=== PATIENT | female | born 1995 | race Two or more races ===

== ENCOUNTER 2016-12-19 15:12 | Emergency (ER) | payer MEDICAID ==
--- NOTE | 2016-12-19 17:34 | UC ---
Throat Pain/Nasal Stewart HPI - HPI Summary HPI Summary: sore throat getting worse for a couple of days, no fever - History of Current Complaint Chief Complaint: UCGeneralIllness Stated Complaint: SORE THROAT Time Seen by Provider: 12/19/16 17:07 Hx Obtained From: Patient Hx Last Menstrual Period: 12/11/16 ?: No Onset/Duration: Sudden Onset, Lasting Days Severity: Moderate Pain Intensity: 6 Pain Scale Used: 0-10 Numeric Cough: None Associated Signs & Symptoms: Positive: Negative - Allergies/Home Medications Allergies/Adverse Reactions: Allergies Allergy/AdvReac Type Severity Reaction Status Date / Time No Known Allergies Allergy Verified 12/19/16 15:47 PMH/Surg Hx/FS Hx/Imm Hx Previously Healthy: Yes Other History Of: Negative For: HIV, Hepatitis B, Hepatitis C, Anticoagulant Therapy - Surgical History Surgical History: Yes Surgery Procedure, Year, and Place: x 2 - Family History Known Family History: Positive: None Negative: Cardiac Disease - Social History Occupation: Unemployed Lives: With Family Alcohol Use: Rare Substance Use Type: None Smoking Status (MU): Never Smoked Tobacco Review of Systems Constitutional: Negative Skin: Negative Eyes: Negative ENT: Sore Throat Respiratory: Negative Cardiovascular: Negative Gastrointestinal: Negative Genitourinary: Negative Motor: Negative Neurovascular: Negative Musculoskeletal: Negative Neurological: Negative Psychological: Negative Is Patient Immunocompromised?: No All Other Systems Reviewed And Are Negative: Yes Physical Exam Triage Information Reviewed: Yes Appearance: Well-Appearing, No Pain Distress, Well-Nourished Vital Signs: Initial Vital Signs Temp 98 F 12/19/16 15:47 Pulse 75 12/19/16 15:47 Resp 16 12/19/16 15:47 BP 102/67 12/19/16 15:47 Pulse Ox 100 12/19/16 15:47 Vital Signs Reviewed: Yes Eye Exam: Normal Eyes: Positive: Conjunctiva Clear ENT Exam: Normal ENT: Positive: Normal ENT inspection, Hearing grossly normal, Pharyngeal erythema, TMs normal. Negative: Nasal congestion, Nasal drainage, Trismus, Muffled/hoarse voice Dental Exam: Normal Neck exam: Normal Neck: Positive: Supple, Nontender, No Lymphadenopathy Respiratory Exam: Normal Respiratory: Positive: Chest non-tender, Lungs clear, Normal breath sounds, No respiratory distress, No accessory muscle use Cardiovascular Exam: Normal Cardiovascular: Positive: RRR, Pulses Normal, Brisk Capillary Refill Musculoskeletal Exam: Normal Musculoskeletal: Positive: Strength Intact, ROM Intact, No Edema Neurological Exam: Normal Neurological: Positive: Alert, Muscle Tone Normal Psychological Exam: Normal Skin Exam: Normal Diagnostics - Laboratory Diagnostic Studies Completed/Ordered: RST (+) Throat Pain/Nasal Course/Dx - Course Assessment/Plan: increase fluids, amoxicillin, tylenol, ibuprofen for pain - Differential Dx/Diagnosis Differential Diagnosis/HQI/PQRI: Pharyngitis Provider Diagnoses: Strep Pharyngitis Discharge - Discharge Plan Condition: Stable Disposition: HOME Prescriptions: Amoxicillin PO (*) [Amoxicillin 500 MG CAP*] 500 mg PO TID #30 cap Patient Education Materials: Strep Throat (ED) Referrals: [facility] PHYSICIAN REFERRAL [Outside] - If Needed
== END 2016-12-19 17:40 | disposition home or self-care (01) ==
LOC: UCEAST 15:12
DX: J02.0 Streptococcal pharyngitis (principal)
CPT/HCPCS: 81025; 87651; 99212; G0463

== ENCOUNTER 2019-05-27 06:14 | Inpatient (IN) | payer OTHER ==
--- OUTSIDE RECORDS SUMMARY | 2019-05-27 06:19 | XMS REPORT | Continuity of Care Document ---
:1995 External Reference #:[id number] Author Name Hernan Hoff MD Address [address] [facility] [place] [address] Problems Description No Information Available Social History Type Date Description Comments Sex Unknown Tobacco Use Start: Unknown Never Smoked Cigarettes ETOH Use Denies alcohol use Recreational Drug Use Denies Drug Use Tobacco Use Start: Unknown Patient has never smoked Smoking Status Reviewed: 05/15/19 Patient has never smoked Allergies, Adverse Reactions, Alerts Description No Known Drug Allergies Medications Active Medications SIG Qnty Indications Ordering Provider Date Vitamin 1 po qd Unknown Capsules Ferrousul take 1 tablet Unknown 325(65Fe) mg daily. Tablets Medications Administered in Office Medication SIG Qnty Indications Ordering Provider Date PT SCRN Tbco Id as Non User Hernan Hoff MD 05/15/2019 Injection Immunizations Description No Information Available Vital Signs Date Vital Result Comment 05/15/2019 1:57pm BP Systolic 122 mmHg BP Diastolic 74 mmHg Body Temperature 97.5 F Heart Rate 100 /min Respiratory Rate 16 /min Height 65 inches 5'5" Weight 168.00 lb BMI (Body Mass Index) 28.0 kg/m2 3 Parity 2 05/01/2019 9:59am BP Systolic 102 mmHg BP Diastolic 62 mmHg Height 65 inches 5'5" Weight 168.00 lb BMI (Body Mass Index) 28.0 kg/m2 Results Test Acquired Date Facility Test Result H/L Range Note Laboratory test 05/15/2019 [facility] Genital For <pending> [place] [address] GRP B Strep [phone] Only Urine Culture And 05/01/2019 [facility] Urine SEE RESULT 1 [place] [address] Culture BELOW [phone] 1 SEE RESULT BELOW Name: MACSHANIANDREIRENNYJUNIOR : [address]: Michelle Giordano [facility] Acct: [id number] Unit: [id number] AGE: 23 Location: [facility] Re05/01/19 SEX: F Status: REG REF SPEC: [id number] MONCHO: 05/01/19-[address] [facility] [address]: Michelle CAMACHO REQ: [id number] RECD: 05/01/19 STATUS: COMP _ SOURCE: URINE SPDESC: ORDERED: Urine Culture COMMENTS: [id number] Urine Source: Random Procedure Result Reported Site Urine Culture Final 05/02/19- 1405 ML No growth of clinically significant organisms * ML - Main Lab . END OF REPORT DEPARTMENT OF PATHOLOGY, [address] [place] [address] Branden Vera M.D. Director [facility] # [id number] Procedures Date Code Description Status 05/08/2019 79037 Echography Uterus Limited Completed 05/01/2019 69649 Admin Patient Focused Health Risk Assessment Instrument Completed Medical Devices Description No Information Available Encounters Type Date Location Provider Dx Diagnosis Office Visit 05/15/2019 [facility] Hernan Hoff MD Z01.818 Encounter for other 2:00p preprocedural examination O34.211 Matern care for low transverse scar from prev del Assessments Date Code Description Provider 05/15/2019 Z01.818 Encounter for other preprocedural Hernan Hoff MD examination 05/15/2019 O34.211 Maternal care for low transverse scar Hernan Hoff MD from previous delivery 05/08/2019 Z34.83 Encounter for supervision of other normal Sumanth Ngo M.D. , third trimester 05/01/2019 Z34.83 Encounter for supervision of other normal Michelle Giordano CNM , third trimester Plan of Treatment Future Appointment(s):05/27/2019 7:45 am - Key Campa CNM at [facility] 2019 2:30 pm - Hernan Hoff MD at [facility]06/04/2019 1:15 pm - Michelle Giordano CNM at [facility]05/27/2019 7:45 am - Hernan Hoff MD at [facility] R005/22/2019 2:40 pm - Sumanth Ngo M.D. at [facility] Functional Status Description No Information Available Mental Status Description No Information Available Referrals Description No Information Available
--- OUTSIDE RECORDS SUMMARY | 2019-05-27 06:19 | XMS REPORT | Continuity of Care Document ---
:1995 External Reference #:[id number] Author Name Sumanth Ngo M.D. (transmitted by agent of provider Cecelia Padilla) Address [address] [place] [address] Problems Description No Information Available Social History [...] Result H/L Range Note Laboratory test 05/15/2019 [facility] Genital For SEE RESULT 1 [place] [address] GRP B Strep BELOW [phone] Only Urine Culture And 05/01/2019 [facility] Urine SEE RESULT 2 [place] [address] Culture BELOW [phone] 3 SEE RESULT BELOW Name: EZESHYANNE CARNEYJACKSONJUNIOR : [address]: Hernan Hoff MD Acct: [id number] Unit: [id number] AGE: 23 Location: [facility] Re05/15/19 SEX: F Status: REG REF SPEC: [id number] MONCHO: 05/15/19-1429 [facility] DR: Hernan Hoff MD REQ: [id number] RECD: 05/15/19996 STATUS: COMP _ SOURCE: ESCOBAR/BONNIE/RE SPDESC: ORDERED: Grp B Strp Scrn COMMENTS: [id number] QUERIES: Is Patient Penicillin Allergic? N Is patient penicillin allergic and/or sensitivities needed? N Provider Requisition # [id number]_ Procedure Result Reported Site Group B Strep Culture Screen Final 05/17/19- 1349 ML Group B Strep Screen Negative * ML - [facility] Lab . END OF REPORT DEPARTMENT OF PATHOLOGY, [address] [place] [address] Branden Vera M.D. Director [facility] # [id number] 2 SEE RESULT BELOW Name: DANNIELLE ARIAS : [address]: Michelle Giordano CNM Acct: [id number] Unit: [id number] AGE: 23 Location: [facility] Re05/01/19 SEX: F Status: REG REF SPEC: [id number] MONCHO: 05/01/19-0[address] [facility] [address]: Michelle Giordano [facility] REQ: [id number] RECD: 05/01/19 STATUS: COMP _ SOURCE: URINE SPDESC: ORDERED: Urine Culture COMMENTS: [id number] Urine Source: Random Procedure Result Reported Site Urine Culture Final 05/02/19- 1405 ML No growth of clinically significant organisms * ML - Main Lab . END OF REPORT DEPARTMENT OF PATHOLOGY, [address] [place] [address] Branden Vera M.D. Director [facility] # [id number] Procedures Date Code Description Status 05/08/2019 43655 Echography Uterus Limited Completed 05/01/2019 79488 Admin Patient Focused Health Risk Assessment Instrument Completed Medical Devices Description No Information Available Encounters Type Date Location Provider Dx Diagnosis Office Visit 05/15/2019 [facility] Office Hernan Hoff MD Z01.818 Encounter for other 2:00p preprocedural examination O34.211 Matern care for low transverse scar from prev del Assessments Date Code Description Provider 05/22/2019 Z36.9 Encounter for screening, Sumanth Ngo M.D. unspecified 05/15/2019 Z01.818 Encounter for other preprocedural Hrenan Hoff MD examination 05/15/2019 O34.211 Maternal care for low transverse scar Hernan Hoff MD from previous delivery 05/08/2019 Z34.83 Encounter for supervision of other normal Sumanth Ngo M.D. , third trimester 05/01/2019 Z34.83 Encounter for supervision of other normal Michelle Giordano CNM , third trimester Plan of Treatment Future Appointment(s):05/27/2019 7:45 am - Key Campa CNM at [facility] 2019 2:30 pm - Hernan Hoff MD at [facility]06/04/2019 1:15 pm - Michelle Giordano CNM at [facility]05/27/2019 7:45 am - Hernan Hoff MD at [facility] R Functional Status Description No Information Available Mental Status Description No Information Available Referrals Description No Information Available
--- OUTSIDE RECORDS SUMMARY | 2019-05-27 06:19 | XMS REPORT | Continuity of Care Document ---
:1995 Author Organization [facility] Allergies and Intolerances No Allergy Data in the System Medications No data In The System Medications At Time Of Discharge No data In The System Problems No Data in the system Procedures No data in the system Results Laboratory Results Order: CBC DIFF Specimen Source: Body Site : Legend: (G,H) = High, (GG,HH,CH,#H) = Above High Threshold, (#,L) = Low, (##, CL,#L,LL) = Below Low Threshold, (C,CC,CA,#A,A) = Abnormal LOINC Test Result Flag Range Units Date 1WBC 6.2 4.8-10.8 K/uL 04/23/2019 14:40 1RBC 3.92 L 4.20-5.40 M/uL 04/23/2019 14:40 1HEMOGLOBIN 10.9 L 12.0-16.0 gm/dL 04/23/2019 14:40 1HEMATOCRIT 33.2 L 36.0-48.0 % 04/23/2019 14:40 1MCV 84.6 80.0-100.0 fL 04/23/2019 14:40 1MCHC 32.9 30.0-36.5 % 04/23/2019 14:40 1MCH 27.8 27.0-34.0 pg 04/23/2019 14:40 1RDW 12.2 11.0-15.0 % 04/23/2019 14:40 1PLATELET 225 130-450 K/uL 04/23/2019 14:40 1MPV 7.1 6.0-12.0 fL 04/23/2019 14:40 1NE% 59 37-80 % 04/23/2019 14:40 1LY% 26 10-50 % 04/23/2019 14:40 1MO% 14 H 0-12 % 04/23/2019 14:40 1EO% 1 <=8 % 04/23/2019 14:40 1BA% 0 <=3 % 04/23/2019 14:40 1NE# 3.6 1.8-8.6 K/uL 04/23/2019 14:40 1LYMPH# 1.6 0.5-5.0 K/uL 04/23/2019 14:40 1MONO# 0.9 0.0-1.3 K/uL 04/23/2019 14:40 1EOS# 0.1 0.0-0.9 K/uL 04/23/2019 14:40 1BASO# 0.0 0.0-0.3 K/ul 04/23/2019 14:40 Performing Lab Footnotes:[facility] - [id number] - [address] [place] [address] BERLIN MCDONALD Order: GLUCOSE 1HR (OB) CHALLANGE Specimen Source: Body Site: Legend: ( G,H) = High, (GG,HH,CH,#H) = Above High Threshold, (#,L) = Low, (##,CL,#L,LL) = Below Low Threshold, (C,CC,CA,#A,A) = Abnormal LOINC Test Result Flag Range Units Date 1GLU 1HR CHALLENGE 97 <=130 mg/dL 04/23/2019 14:40 Performing Lab Footnotes:[facility] - [id number] - [address] [place] [address] [place]ER[place] MCDONALD Social History Code Code System Social History Description Dates Observed Observation 265949453 SNOMED CT Current Smoking Unknown if ever Status smoked UNK AdministrativeGender Sex Assigned At Unknown Vital Signs No data in the system Goals Section No data in the system Health Concerns No data in the systemEncounter Diagnosis Date Code Code System Diagnosis Status Z34.83 ICD10 ENC SUPV OTH NORMAL PREG THIRD TRI Active Advance Directives No Data in the System Encounters Encounter Diagnosis Location Date ENC SUPV OTH NORMAL PREG THIRD TRI [facility] 04/23/2019 Family History Family history not obtained Functional Status No data in the system Immunizations No data in the system Medical Equipment No data in the system Mental Status No data in the system Assessment and Plan Assessments No data in the systemPlan Of Treatment No data in the systemPending Tests No data in the system Hospital Discharge Instructions No data in the system Reason for Visit Reason for Visit Z3483 - ENC SUPV OTH NORMAL PREG THIRD TRI
--- OUTSIDE RECORDS SUMMARY | 2019-05-27 06:19 | XMS REPORT | Continuity of Care Document ---
:1995 External Reference #:[id number] Author Name Sumanth Ngo M.D. (transmitted by agent of provider Sudhakar Mathur ) Address [address] [place] [address] Problems Description No Information Available Social History [...] Result H/L Range Note Laboratory test 05/15/2019 [facility] Genital For SEE RESULT 1 [place] [address] GRP B Strep BELOW [phone] Only Urine Culture And 05/01/2019 [facility] Urine SEE RESULT 2 [place] [address] Culture BELOW [phone] 1 SEE RESULT BELOW Name: MACSHANIDANNIELLE FORBES : [address]: Hernan Hoff MD Acct: [id number] Unit: [id number] AGE: 23 Location: [facility] Re05/15/19 SEX: F Status: REG REF SPEC: [id number] MONCHO: 05/15/19-[address] [facility] [address]: Hernan Hoff MD REQ: [id number] RECD: 05/15/19515 STATUS: COMP _ SOURCE: ESCOBAR/VAG/RE SPDESC: ORDERED: Grp B Strp Scrn COMMENTS: [id number] QUERIES: Is Patient Penicillin Allergic? N Is patient penicillin allergic and/or sensitivities needed? N Provider Requisition # [id number] Procedure Result Reported Site Group B Strep Culture Screen Final 05/17/19- 1349 ML Group B Strep Screen Negative * ML - Main Lab . END OF REPORT DEPARTMENT OF PATHOLOGY, [address] [place] [address] Branden Vera M.D. Director [facility] # [id number] 2 SEE RESULT BELOW Name: DANNIELLE ARIAS : [address]: Michelle Giordano CNM Acct: [id number] Unit: [id number] AGE: 23 Location: [facility] Re05/01/19 SEX: F Status: REG REF SPEC: [id number] MONCHO: 05/01/19-[address] [facility] [address]: Michelle Giordano [facility] REQ: [id number] RECD: 05/01/19 STATUS: COMP _ SOURCE: URINE SPDES: ORDERED: Urine Culture COMMENTS: [id number] Urine Source: Random Procedure Result Reported Site Urine Culture Final 05/02/19- 1405 ML No growth of clinically significant organisms * ML - Main Lab . END OF REPORT DEPARTMENT OF PATHOLOGY, [address] [place] [address] Branden Vera M.D. Director [facility] # [id number] Procedures Date Code Description Status 05/08/2019 17164 Echography Uterus Limited Completed 05/01/2019 85199 Admin Patient Focused Health Risk Assessment Instrument Completed Medical Devices Description No Information Available Encounters Type Date Location Provider Dx Diagnosis Office Visit 05/15/2019 [facility] Office Hernan Hoff MD Z01.818 Encounter for [...] 7:45 am - Key Campa CNM at [place] [id number] 2:30 pm - Hernan Hoff MD at [facility]06/04/2019 1:15 pm - Michelle Giordano CNM at [facility]05/27/2019 7:45 am - Hernan Hoff MD at [facility] O R Functional Status Description No Information Available Mental Status Description No Information Available Referrals Description No Information Available
[2019-05-27] MEDS ORDERED: ceFOXitin 2 GM IVPREMIX* 2 GM/50 ML BAG IVPB ONE (07:00)
[2019-05-27] MEDS ORDERED: diPHENhydraMINE IV* 50 MG/ML 1 ml VIAL (BENADRYL) IV PRN (07:13)
[2019-05-27] MEDS ORDERED: PROCHLORPERAZINE INJ 5 MG/ML 2 ML VIAL IV PRN (07:13)
[2019-05-27] MEDS ORDERED: oxyCODONE TAB* 5 MG TAB PO PRN ×2 (07:13→11:10)
[2019-05-27] MEDS ORDERED: Naloxone* 0.4 MG/ML 1 ML VIAL IV PRN (07:13)
[2019-05-27] MEDS ORDERED: Ondansetron INJ* 2 MG/ML VIAL IV PRN (07:13)
[2019-05-27] MEDS ORDERED: Morphine PF AMP (0.5MG/ML)* 5 MG/10 ML AMP ONE (07:21)
[2019-05-27] MEDS ORDERED: fentaNYL* 50 MCG/ML 2 ML VIAL (100 MCG VIAL) ONE (07:21)
[2019-05-27 07:25] LABS: Urine Benzodiazepine Screen None Detected (None Detect); Urine Opiates Screen None Detected (None Detect)
[2019-05-27] MEDS ORDERED: Ibuprofen TAB* 400 MG PO SCH (08:00)
[2019-05-27] MEDS ORDERED: OXYTOCIN* 10 UNITS/ML 1 ML VIAL ONE (08:09)
[2019-05-27] MEDS ORDERED: Phenylephrine 40 MCG/ML SYRINGE ONE (08:09)
[2019-05-27] MEDS ORDERED: Ketorolac INJ* 30 MG/ML 1 ML VIAL ONE (09:14)
[2019-05-27] MEDS ORDERED: Witch Hazel PAD* JAR TOPICAL PRN (09:48)
[2019-05-27] MEDS ORDERED: Lactated Ringers 1000 ML Bag* 1,000 ML IV SCH (10:00)
[2019-05-27] MEDS: Simethicone TAB* 80 MG TAB.CHEW PO SCH ×3 (12:45→21:19)
[2019-05-27] MEDS: Acetaminophen TAB* 325 MG PO PRN ×2 (12:45→21:18)
[2019-05-27] MEDS: Docusate CAP* 100 MG PO SCH ×2 (14:06→21:18)
[2019-05-27] MEDS: Ketorolac INJ* 30 MG/ML 1 ML VIAL IV PRN ×2 (15:09→21:19)
[2019-05-28] MEDS ORDERED: oxyCODONE TAB* 5 MG TAB PO PRN
[2019-05-28] MEDS: oxyCODONE TAB* 5 MG TAB PO PRN ×5 (03:04→22:40)
[2019-05-28] MEDS: Ketorolac INJ* 30 MG/ML 1 ML VIAL IV PRN (03:04)
[2019-05-28 05:56] LABS: ABS Eosinophils 0.1 10^3/ul (0-0.6); ABS Lymphocytes 0.6 10^3/ul (1.0-4.8); ABS Monocytes 0.7 10^3/ul (0-0.8); ABS Neutrophils 5.1 10^3/ul (1.5-7.7); Eosinophil % 0.8 %; Hematocrit 29 % (35-47); Hemoglobin 9.7 g/dL (12.0-16.0); Lymphocyte % 9.8 %; Mean Corpuscular HGB Conc 34 g/dL (31-36); Mean Corpuscular Hemoglobin 28 pg (27-31); Mean Corpuscular Volume 82 fL (80-97); Mean Platelet Volume 7.4 fL (7.4-10.4); Platelet Count 175 10^3/uL (150-450); Red Blood Count 3.48 10^6 /uL (3.70-4.87); Red Cell Distribution Width 14 % (10-15); White Blood Count 6.5 10^3/uL (3.5-10.8)
[2019-05-28] MEDS: Acetaminophen TAB* 325 MG PO PRN ×4 (08:44→22:39)
[2019-05-28] MEDS: Simethicone TAB* 80 MG TAB.CHEW PO SCH ×4 (09:14→21:10)
[2019-05-28] MEDS: Ferrous Gluconate TAB* 324 MG TAB PO SCH ×2 (09:14→21:10)
[2019-05-28] MEDS: Docusate CAP* 100 MG PO SCH ×3 (09:14→21:10)
--- NOTE | 2019-05-28 10:05 | OP ---
DATE OF OPERATION: 05/27/19 - ROOM #116 DATE OF : [birth year] SURGEON: Hernan Hoff MD. RN ORTHOPAEDIC: NICOLASA Campa. ANESTHESIOLOGIST: Dr. Waite. ANESTHESIA: Spinal. PRE-OP DIAGNOSIS: 39 weeks gestation with previous section. POST-OP DIAGNOSIS: 39 weeks gestation with previous section. OPERATIVE PROCEDURE: Repeat low transverse section with vacuum assist. ESTIMATED BLOOD LOSS: 700 cc. URINE OUTPUT: 200 cc. IV FLUIDS: 1400 cc lactated Ringer's. MATERIALS TO LAB: Cord blood. COMPLICATIONS: None. INDICATIONS: This patient was a 23-year-old 3, para 2, who presented for her scheduled repeat section. The patient's was otherwise uncomplicated. She was extensively counseled for the procedure and consent was signed. FINDINGS: Normal-appearing uterus, fallopian tubes, and ovaries. Delivery is productive of a female weighing 7 pounds 4 ounces with Apgars of 9 and 9. Time of delivery was 0832. DESCRIPTION OF PROCEDURE: The risks, benefits, and alternatives were described to the patient, and informed consent was obtained. The patient was taken to the operating room with IV running, where spinal anesthesia was induced and found to be adequate. The patient was prepped and draped in normal sterile fashion in the dorsal supine position with a leftward tilt. A Pfannenstiel skin incision was made with a scalpel through the patient's previous incision. This was carried down to the underlying fascia using the scalpel. The fascia was scored in the midline, and the incision was extended using Christie scissors. The fascia was dissected off the underlying rectus muscles using blunt and sharp dissection. The rectus muscles were in the midline using dissection with a Valentine clamp. The peritoneum was then entered bluntly. A bladder blade was placed. A bladder flap was created sharply using Metzenbaum scissors. A low transverse uterine incision was then made with the scalpel. This was carried down to the amniotic membranes. The membranes were then ruptured, productive of clear fluid. The uterine incision was extended using blunt traction. The head was elevated to the level of the incision, and, with fundal pressure, the head delivered without difficulty. The shoulders then were also both delivered and the body followed. The had excellent tone and cried immediately on delivery. The cord was doubly clamped and cut. The was then handed to the awaiting stratigraphy teacher. Cord blood was collected. The placenta was delivered with manual extraction. The uterus was then exteriorized and cleared of all clots and debris. The uterine incision was then reapproximated using 0 Polysorb in a running-locked fashion. A second layer of imbricating 0 Polysorb sutures was then also placed for good hemostasis. The posterior cul-de-sac was irrigated with saline. The uterus was then returned to the abdomen. The incision was reinspected and still noted to be hemostatic. The peritoneum was closed with 2-0 chromic in a running fashion. The fascia was closed with 0 Polysorb in a running fashion. The subcutaneous tissues were copiously irrigated and made hemostatic using the Bovie. The subcutaneous tissues were then reapproximated using 2-0 chromic in interrupted sutures. The skin was then closed with . A sterile bandage was then placed over the incision. The patient tolerated the procedure well. Sponge, lap, and needle counts were correct x2. [id number]/[facility] #: [id number] [facility] MEDICAL CENTERBandar
[2019-05-28] MEDS: Ibuprofen TAB* 600 MG PO SCH ×2 (12:53→21:09)
[2019-05-29] MEDS: Acetaminophen TAB* 325 MG PO PRN ×2 (07:00→13:34)
[2019-05-29] MEDS: oxyCODONE TAB* 5 MG TAB PO PRN (07:00)
[2019-05-29 08:26] VITALS: BP 98/57
[2019-05-29] MEDS: Simethicone TAB* 80 MG TAB.CHEW PO SCH ×2 (09:22→13:33)
[2019-05-29] MEDS: Docusate CAP* 100 MG PO SCH ×2 (09:22→13:33)
[2019-05-29] MEDS: Ferrous Gluconate TAB* 324 MG TAB PO SCH (09:22)
[2019-05-29] MEDS: Ibuprofen TAB* 600 MG PO SCH ×2 (09:23→13:28)
[2019-05-29] MEDS ORDERED: Tetan/Diph/Pertus SYR(Tdap)* 0.5 ML SYR(BOOSTRIX) use SYR contains LATEX IM ONE (12:00)
== END 2019-05-29 14:55 | disposition home or self-care (01) | DRG 540 ==
LOC: MCHOB 06:14
PROVIDERS: ADMIT Obstetrics & Gynecology; ATTEND Obstetrics & Gynecology
PROC: 10D00Z1 Extraction of Products of Conception, Low, Open Approach (ICD-10-PCS; principal; 2019-05-27 07:45)
DX: O34.211 Maternal care for low transverse scar from previous cesarean delivery (principal); O90.81 Anemia of the puerperium; D64.9 Anemia, unspecified; Z3A.39 39 weeks gestation of pregnancy; Z37.0 Single live birth
CPT/HCPCS: 36415; 80307; 85025; 90715; A9270-GY; G0480; J0694; J1885; J2590; J3010